=== PATIENT | male | born 1935 | race Hispanic/Latino ===

== ENCOUNTER 2018-10-28 13:49 | Outpatient (CLI) | payer MEDICARE | END 2018-10-28 13:50 | disposition home or self-care (01) | LOC: CARDIO 13:49 | DX: Z45.010 Encounter for checking and testing of cardiac pacemaker pulse generator [battery] (principal) ==

== ENCOUNTER 2019-01-27 14:18 | Outpatient (CLI) | payer MEDICARE | END 2019-01-27 14:19 | disposition home or self-care (01) | LOC: CARDIO 14:18 ==